=== PATIENT | male | born 1960 | race Caucasian/White ===

== ENCOUNTER → 2017-12-24 14:51 | Outpatient (CLI) | payer OTHER, SELFPAY ==
[2017-12-24 15:55] LABS: Creatinine,Serum 0.76 mg/dL (0.70-1.30); Estimated Glomerular Filt Rate 106 ml/min (>60); GFR (African American) 128 ML/MIN (>60)
== END ==
PROVIDERS: PCP Dentist General Practice; Visit Provider Physician Assistant Medical
DX: Z79.1 Long term (current) use of non-steroidal anti-inflammatories (NSAID) (principal)
CPT/HCPCS: 36415; 82565

== ENCOUNTER → 2018-08-12 10:47 | Outpatient (CLI) | payer OTHER, SELFPAY ==
[2018-08-13 20:49] LABS: PSA, Free 0.22 ng/mL; Prostate Specific Ag 0.7 ng/mL (0.0-4.0)
== END ==
PROVIDERS: Visit Provider Urology
DX: R97.20 Elevated prostate specific antigen [PSA] (principal)
CPT/HCPCS: 36415; 84153; 84154

== ENCOUNTER → 2019-02-10 12:24 | Outpatient (CLI) | payer OTHER, SELFPAY ==
[2019-02-11 10:48] LABS: PSA, Free 0.24 ng/mL
== END ==
PROVIDERS: Visit Provider Urology
DX: R97.20 Elevated prostate specific antigen [PSA] (principal)
CPT/HCPCS: 36415; 84153; 84154

== ENCOUNTER → 2019-07-06 13:38 | Outpatient (CLI) | payer OTHER, SELFPAY ==
--- NOTE | 2019-07-06 13:47 | XR_ITS ---
PROCEDURE: XR FOOT RT MIN 3V CLINICAL INDICATION: ABRASION/FOOT/TOE Foot pain and swelling COMPARISON: XR FOOT LT MIN 3V from 07/06/2019 FINDINGS: No fracture or dislocation. No lytic or blastic change. There is normal mineralization. The joint spaces are well-preserved. No significant degenerative/arthritic changes. No erosive changes evident. Other findings:There appears to be some soft tissue swelling along the dorsal aspect of the foot at the proximal metatarsal region. IMPRESSION: Soft tissue swelling along the dorsal aspect of the foot at the proximal metatarsal region otherwise negative Dictated by: Vahid Pond MD 07/06/2019 16:45 Electronically signed by Vahid Pond MD in [place] 07/06/2019 16:45
--- NOTE | 2019-07-06 13:47 | XR_ITS ---
PROCEDURE: XR FOOT LT MIN 3V CLINICAL INDICATION: ABRASION/FOOT/TOE Posttraumatic pain, swelling COMPARISON: No exams were available for comparison FINDINGS: No fracture or dislocation. No lytic or blastic change. There is normal mineralization. The joint spaces are well-preserved. No significant degenerative/arthritic changes. No erosive changes evident. Other findings:None. IMPRESSION: Negative left foot Dictated by: Vahid Pond MD 07/06/2019 16:44 Electronically signed by Vahid Pond MD in [place] 07/06/2019 16:44
== END ==
PROVIDERS: PCP Nurse Practitioner; Visit Provider Nurse Practitioner
DX: S90.812A Abrasion, left foot, initial encounter (principal); S90.811A Abrasion, right foot, initial encounter
CPT/HCPCS: 73630

== ENCOUNTER → 2020-01-10 11:54 | Outpatient (CLI) | payer OTHER, SELFPAY ==
--- NOTE | 2020-01-10 12:05 | XR_ITS ---
PROCEDURE: XR LUMBAR SPINE 2-3V CLINICAL INDICATION: POSTLAMINECTOMY SYNDROME, NOT ELSEWHERE CLASSIFIED COMPARISON: MR HAND PACKER/O MRI-L-SPINE W/O from 04/29/2016 FINDINGS: There is some straightening of the normal curvature thoracolumbar region suggesting muscle spasm. There is disc space narrowing with vacuum phenomenon L3-4 disc space with marginal osteophytic spurring. There is mild disc space narrowing at the L4-5 level as well. 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 There is no pars defect. There appear to be laminectomy defects at the L 3 4 and L4-5 levels.. The SI joints are normal. IMPRESSION: Moderate degenerative disc disease L3-4, congenital anomaly lumbosacral junction as described Dictated by: Dr. Bao Hernandez MD 01/10/2020 13:03 Dr. Bao Hernandez MD in [place] 01/10/2020 13:03
== END ==
PROVIDERS: PCP Family Medicine; Visit Provider Physician Assistant Medical
DX: M96.1 Postlaminectomy syndrome, not elsewhere classified (principal)
CPT/HCPCS: 72100

== ENCOUNTER 2021-09-07 18:35 | Emergency (ER) | payer OTHER, SELFPAY ==
[2021-09-07 18:44] VITALS: BP 155/83; PULSE 82; RESP 16; TEMP 36.9; O2SAT 96; BMI 27.4
--- NOTE | 2021-09-07 19:25 | HMH.EDUTC ---
[facility] [place] Disposition Clinical Impression: Need for Tdap vaccination Laceration of left index finger Qualifiers: Encounter type: initial encounter Damage to nail status: without damage Foreign body presence: with foreign body Qualified Code(s): S61.221A - Laceration with foreign body of left index finger without damage to nail, initial encounter Disposition: Home, Self-Care Condition on Discharge: Good Instructions: How to Care for a Laceration After Repair, DI for Laceration Repair -- Simple, Tetanus, Diphtheria, Pertussis (Tdap) Vaccine Additional Instructions: Keep the wound clean and dry. Keep a dressing on it if you are going to be getting it dirty. Watch the for signs of infection, such as redness, swelling, drainage, fever. etc. Take tylenol or ibuprofen for pain. Follow up with your regular doctor for a wound recheck in 3 days if possible. Return in 10 days to have the sutures removed. GO TO THE ER FOR ANY WORSENING SYMPTOMS OR CONCERNS. Prescriptions: cephALEXin [cephALEXin 500mg capsule] 500 mg PO Q6H 10 Days #40 cap Transmission Status: Received by [facility]/pharmacy #[id number] Referrals: Jean Pierre Manley MD [Primary Care Provider] - Time of Disposition: 19:40 Medical Decision Making - Medical Records Medical records reviewed: No: I reviewed the patient's medical records. - Alessandro Inquiry Pt receiving controlled substance: No Vital Signs: 09/07/21 18:44 09/07/21 19:46 Temperature 98.5 F 98.5 F Temperature Source Oral Pulse Rate 82 Pulse Rate [Left] 82 Respiratory Rate 16 16 Blood Pressure 155/83 H Blood Pressure [Right Arm] 155/83 H Blood Pressure Mean [Right Arm] 107 02 Sat by Pulse Oximetry 96 Orders (Tests/Meds): ED MEDICATIONS Discontinued Medications Generic Name Dose Route Start Last Admin Trade Name Freq PRN Reason Stop Dose Admin Cephalexin HCl 500 mg 09/07/21 19:40 09/07/21 19:47 Cephalexin 500mg Capsule PO 09/07/21 19:41 500 mg ONCE ONE Administration Diphtheria/Tetanus/Acell Pertussis 0.5 ml 09/07/21 19:04 09/07/21 19:07 [id number] Pediatric Vaccine 0.5ml IM 09/07/21 19:05 Not Given .ONCE ONE Tetanus/Diphtheria Toxoids 0.5 ml 09/07/21 19:06 09/07/21 19:07 Tetanus-Diphth Toxoid, Adult 0.5ml Syr IM 09/07/21 19:07 0.5 ml .ONCE ONE Administration [facility] [place] HPI - General Stated complaint: AO09/07 1730 Left index finger injury Time Seen by Provider: 09/07/21 19:25 Description of Symptoms (Recalled from Triage Doc. by RN): patient comes in with a lacertion to his left index finger. patient was using a rack washer, it slipped and hit his finger. 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 He has a 1 cm laceration on the left index finge - Related Data Home Medications Medication Instructions Recorded Confirmed gabapentin 600 mg tablet 600 mg PO TID 06/17/18 07/26/19 meloxicam 15 mg tablet 15 mg PO DAILY 06/17/18 07/26/19 oxycodone-acetaminophen 10 mg-325 1 tab PO Q8H PRN 06/17/18 07/26/19 mg tablet tamsulosin 0.4 mg capsule 0.4 mg PO DAILY 06/17/18 07/26/19 trazodone 100 mg tablet 100 mg PO DAILY 06/17/18 07/26/19 Previous Rx's Medication Instructions Recorded cephALEXin [cephALEXin 500mg 500 mg PO Q6H 10 Days #40 cap 09/07/21 capsule] Allergies Allergy/AdvReac Type Severity Reaction Status Date / Time No Known Allergies Allergy Verified 09/07/21 18:52 - Worker's Comp Is this a Worker's Comp case?: No [facility] History - Hepatitis A Screen Attestation statement:: This patient has been screened
[2021-09-07 19:46] VITALS: BP 155/83; PULSE 82; RESP 16; TEMP 36.9
== END 2021-09-07 19:47 | disposition home or self-care (01) ==
PROVIDERS: Emergency Provider Nurse Practitioner Family; PCP Family Medicine
DX: S61.221A Laceration with foreign body of left index finger without damage to nail, initial encounter (principal); W29.8XXA Contact with other powered hand tools and household machinery, initial encounter; Z23 Encounter for immunization
CPT/HCPCS: 12001; 90471; 90714; 99213; G0463